=== PATIENT | male | born 1975 | race American Indian/Alaskan Native ===

== ENCOUNTER 2019-09-11 23:35 | Inpatient (IN) | payer OTHER ==
[2019-09-12] MEDS ORDERED: SULFAMETHOXAZOLE/TRIMETHOPRIM 800/160MG DS TAB PO ONE (01:48)
[2019-09-12] MEDS ORDERED: HYDROmorphone 1 MG/1 ML INJ IV ONE (01:48)
[2019-09-12] MEDS ORDERED: SODIUM CHLORIDE 0.9% 1000 ML 1,000 ML IV ONE ×2 (01:49→03:02)
[2019-09-12 02:12] LABS: Basophils % (Auto) 0.5 % (0.0-1.8); Eosinophils # (Auto) 0.1 K/mm3 (0.0-0.4); Eosinophils % (Auto) 1.1 % (0.0-4.3); Hematocrit 45.2 % (35.5-45.6); Hemoglobin 14.3 gm/dl (11.8-15.2); Lymphocytes # (Auto) 1.5 K/mm3 (1.2-5.4); Lymphocytes % (Auto) 15.2 % (13.4-35.0); Mean Corpuscular HGB Conc 32 % (32-34); Mean Corpuscular Volume 77 fl (84-94); Monocytes # (Auto) 0.5 K/mm3 (0.0-0.8); Monocytes % (Auto) 4.9 % (0.0-7.3); Platelet Count 276 K/mm3 (140-440); Red Blood Count 5.87 M/mm3 (3.65-5.03); Red Cell Distribution Width 14.5 % (13.2-15.2)
[2019-09-12 02:36] LABS: Alanine Aminotransferase 12 units/L (7-56); BUN/Creatinine Ratio 8; Blood Urea Nitrogen 9 mg/dL (9-20); Hemolysis Index 5
[2019-09-12] MEDS ORDERED: ACETAMINOPHEN 500 MG TAB PO ONE (03:03)
--- NOTE | 2019-09-12 04:03 | Cat Scan Report ---
CT PELVIS WITH CONTRAST INDICATION: Right scrotal abscess. TECHNIQUE: Axial, coronal and sagittal CT imaging was performed through the pelvis after injection of 100 cc Omn ipaque [address] scans at this location are performed using CT dose reduction for ALARA by means of automated exposure control. COMPARISON: None available. FINDINGS: Generalized perineal edema is seen without soft tissue gas or an organized fluid collection/abscess. An indeterminate soft tissue density linear structure is seen arising from the right/midline of the p osterior margin of the scrotum on images 114 through 122 of series 2. No significant abnormality of the urinary bladder or prostate gland. No significant abnormality of the included portions of the colon/small bowel or the appendix. No free air or free fluid. No significant adenopathy. No significant vascular abnormality. No significant osseous abnormality. IMPRESSION: 1. Perineal edema without CT evidence of an organized fluid collection/abscess along the pelvis. 2. Indeterminate structure of soft tissue density arising from the scrotum as above could represent a wound. Please correlate with the clinical findings. Signer Name: Luther Thayer MD Signed: 09/12/2019 3:59 AM Workstation Name: [id number]
--- NOTE | 2019-09-12 04:33 | Emergency Department Report ---
ED General Adult HPI - General Chief complaint: Skin/Abscess/Foreign Body Stated complaint: GROIN PAIN Source: patient Mode of arrival: Ambulatory Limitations: No Limitations - History of Present Illness Initial comments: Patient is a 44-year-old -[place]ien male with a history of of HIV who presents to the ED with complaint of acute onset persistent severe painful swollen erythematous maculopapular rash with thick purulent discharge on the scrotum that extends to the perineum for the last 1 week. Patient states that he has been taking [id number] pain medication with no relief. Patient states that in the last 2 days the pain and swelling have worsened and just prior to arrival in the ED, it started draining thick purulent discharge. Patient patient also complaints of diffuse body aches and chills with a low- grade fever intermittently for the last 5 days. Patient denies dizziness, syncope, nausea, vomiting, abdominal pain, dysuria, testicular pain, urinary frequency and urgency, hematuria, diarrhea, low back pain, chest pain or shortness of breath or change in vision and headache. MD Complaint: Scrotal and perineal abscess -: Sudden, week(s) (1) Location: genitals (scrotum and perineum) Radiation: other (perineum) Severity scale (0 -10): 10 Quality: aching, sharp Consistency: constant Improves with: none Worsens with: movement Associated Symptoms: denies other symptoms, fever/chills, headaches, loss of appetite, malaise, rash (Erythematous maculopapular perineal and scrotal rash with purulent discharge). denies: confusion, chest pain, cough, diaphoresis, nausea/vomiting, seizure, shortness of breath, syncope, weakness Treatments Prior to Arrival: NSAID - Related Data Allergies Allergy/AdvReac Type Severity Reaction Status Date / Time No Known Allergies Allergy Unverified 09/12/19 02:53 ED Review of Systems ROS: Stated complaint: GROIN PAIN Other details as noted in HPI Constitutional: denies: chills, fever Eyes: denies: eye pain, eye discharge, vision change ENT: denies: ear pain, throat pain Respiratory: denies: cough, shortness of breath, wheezing Cardiovascular: denies: chest pain, palpitations Endocrine: no symptoms reported Gastrointestinal: denies: abdominal pain, nausea, diarrhea Genitourinary: other (Severely painful swelling erythematous maculopapular rash on scrotum with purulent discharge). denies: urgency, dysuria Musculoskeletal: denies: back pain, joint swelling, arthralgia Skin: rash, change in color, other (Painful, swollen, erythematous maculopapular rash on the scrotum with purulent discharge). denies: lesions Neurological: denies: headache, weakness, paresthesias Psychiatric: denies: anxiety, depression Hematological/Lymphatic: denies: easy bleeding, easy bruising ED Past Medical Hx - Past Medical History Previous Medical History?: Yes Hx HIV: Yes (undectable since 2011) - Surgical History Past Surgical History?: Yes Additional Surgical History: adenoids - Social History Smoking Status: Never Smoker Substance Use Type: Alcohol ED Physical Exam - General Limitations: No Limitations General appearance: alert, in no apparent distress - Head Head exam: Present: atraumatic, normocephalic, normal inspection - Eye Eye exam: Present: normal appearance, PERRL Pupils: Present: normal accommodation - ENT ENT exam: Present: normal exam, normal orophraynx, mucous membranes moist, TM's normal bilaterally, normal external ear exam - Neck Neck exam: Present: normal inspection, full ROM - Respiratory Respiratory exam: Present: normal lung sounds bilaterally. Absent: respiratory distress, wheezes, rales, rhonchi, chest wall tenderness, accessory muscle use, decreased breath sounds - Cardiovascular Cardiovascular Exam: Present: normal rhythm, tachycardia, normal heart sounds. Absent: systolic murmur, diastolic murmur, rubs, gallop - GI/Abdominal GI/Abdominal exam: Present: soft, normal bowel sounds. Absent: tenderness, hyperactive bowel sounds, hypoactive bowel sounds - exam: Present: scrotal swelling (Swollen, severely tender scrotum due to e rythematous maculopapular rash with thick purulent discharge) External exam: Present: swelling (Severely tender, swollen, erythematous maculopapular rash on scrotum extending to the perineum with thick purulent discharge) - Extremities Exam Extremities exam: Present: normal inspection, full ROM, normal capillary refill. Absent: tenderness, pedal edema, joint swelling - Back Exam Back exam: Present: normal inspection, full ROM. Absent: tenderness, muscle spasm, paraspinal tenderness - Neurological Exam Neurological exam: Present: alert, oriented X3, CN II-XII intact, normal gait, reflexes normal - Psychiatric Psychiatric exam: Present: normal affect, normal mood - Skin Skin exam: Present: warm, dry, intact, rash (Swollen, severely tender erythematous maculopapular scrotal rash that extends to the perineum with thick purulent discharge), erythema ED Course Vital Signs 09/11/19 09/12/19 23:50 05:00 Temperature 99.9 F H 98.9 F Pulse Rate 102 H 66 Respiratory 20 18 Rate Blood Pressure 140/103 Blood Pressure 106/75 [Left] O2 Sat by Pulse 99 100 Oximetry ED Medical Decision Making - Lab Data Result diagrams: 09/12/19 01:52 09/12/19 01:52 - Radiology Data Radiology results: report reviewed, [place] [address] Cat Scan Report Signed Patient: JANUSZ PEOPLES MR#: [id number] : 1975 Acct:[id number] Age/Sex: 44 / M ADM Date: 09/11/19 Loc: ED Attending Dr: Ordering Physician: KASIA GUEVARA Date of Service: 09/12/19 Procedure(s): CT pelvis w con Accession Number(s): [id number] cc: KASIA GUEVARA CT PELVIS WITH CONTRAST INDICATION: Right scrotal abscess. TECHNIQUE: Axial, coronal and sagittal CT imaging was performed through the pelvis after injection of 100 cc Omnipaque [address] scans at this location are performed using CT dose reduction for ALARA by means of automated exposure control. COMPARISON: None available. FINDINGS: Generalized perineal edema is seen without soft tissue gas or an organized fluid collection/abscess. An indeterminate soft tissue density linear structure is seen arising from the right/midline of the posterior margin of the scrotum on images 114 through 122 of series 2. No significant abnormality of the urinary bladder or prostate gland. No significant abnormality of the included portions of the colon/small bowel or the appendix. No free air or free fluid. No significant adenopathy. No significant vascular abnormality. No significant osseous abnormality. IMPRESSION: 1. Perineal edema without CT evidence of an organized fluid collection/abscess along the pelvis. 2. Indeterminate structure of soft tissue density arising from the scrotum as above could represent a wound. Please correlate with the clinical findings. Signer Name: Luther Thayer MD Signed: 09/12/2019 3:59 AM Workstation Name: [id number] Transcribed By: MN Dictated By: Luther Thayer MD Electronically Authenticated By: Luther Thayer MD Signed Date/Time: 09/12/19358 DD/ 3 TD/TT: - Medical Decision Making This is a 44-year-old -[place]ien male with a history of of HIV who presents to the ED with complaint of acute onset persistent severe painful swollen erythematous maculopapular rash with thick purulent discharge on the scrotum that extends to the perineum for the last 1 week. Patient states that he has been taking [id number] pain medication with no relief. Patient states that in the last 2 days the pain and swelling have worsened and just prior to arrival in the ED, it started draining thick purulent discharge. Patient patient also complaints of diffuse body aches and chills with a low-gra de fever intermittently for the last 5 days. In the ED, patient is alert and oriented x3 and is not in distress but appears to be in great pain. Patient is slightly tachycardic and with fever of 99.9 F. Patient was treated for pain in the ED and also started on 2 L normal saline IV bolus, also started on antibiotics IV and treated for fever. Lab test results were reviewed and showed lactate of 2.2 and hyperglycemia 133 mg/dL. Pelvis CT scan with contrast shows a generalized perineal edema without soft tissue gas or an organized fluid collection/abscess. It also shows an indeterminate soft tissue density linear structure is seen arising from the right/midline of the posterior margin of the scrotum. These findings were discussed with the ED attending physician who advised that the patient be admitted to the hospital for further IV antibiotics administration and for further general surgical consult with general surgeon on- call Dr. Sheppard. I therefore paged and discussed the patient's case with the hospitalist physician on-call Dr. Almeida who admitted the patient to the hospital. - Differential Diagnosis Scrotal abscess; perineum cellulitis and abscess; folliculitis Critical care attestation.: If time is entered above; I have spent that time in minutes in the direct care of this critically ill patient, excluding procedure time. ED Disposition Clinical Impression: Abscess of scrotal wall, Abscess or cellulitis of perineum Disposition: 09 OP ADMIT IP TO THIS HOSP Is pt being admited?: Yes Does the pt Need Aspirin: Yes Condition: Stable Referrals: PRIMARY CARE, [Primary Care Provider] - 3-5 Days Time of Disposition: 04:39 Print Language: YORUBA
[2019-09-12] MEDS ORDERED: ASPIRIN 81 MG TAB CHEW PO ONE (05:37)
[2019-09-12] MEDS ORDERED: SODIUM CHLORIDE 0.9% 1000 ML IV SOLN IV ONE (08:01)
[2019-09-12] MEDS ORDERED: ALBUTEROL 2.5 MG/3 ML NEBU IH PRN (08:01)
[2019-09-12] MEDS ORDERED: MORPHINE 2 MG/1 ML INJ IV PRN (08:01)
[2019-09-12] MEDS ORDERED: ACETAMINOPHEN 325 MG TAB PO PRN (08:01)
[2019-09-12] MEDS ORDERED: oxyCODONE /ACETAMINOPHEN 5-325MG TAB PO PRN (08:01)
--- NOTE | 2019-09-12 08:07 | History and Physical Report ---
History of Present Illness Date of examination: 09/12/19 Date of admission: 09/12/19 06:43 Chief complaint: Scrotal pain History of present illness: Patient is a 44-year-old male with history consistent of HIV not on any retroviral and prior history of scrotal abscess who presents to the ED with complaint of perirenal pain 7/10 in intensity ongoing for about a week with swelling and discharge is noted in the area. The patient reports that in prior years he had incision and drainage in the same area and required home health about 2 weeks. He otherwise has not had the need to go to the hospital until this happened bring him to the ED. In the ED he was noted to have a severely painful swollen erythematous maculopapular rash with thick purulent discharge in scrotum area he reports diffuse body aches and chills with low-grade fever for the past 5 days. But denies any nausea vomiting or diarrhea. Past History Past Medical History: HIV/AIDS, other (HIV) Past Surgical History: Other (PERIRENAL ABSCESS I/D) Social history: no significant social history Family history: no significant family history Medications and Allergies Allergies Allergy/AdvReac Type Severity Reaction Status Date / Time No Known Allergies Allergy Unverified 09/12/19 02:53 Home Medications Medication Instructions Recorded Confirmed Last Taken Type No Known Home Medications [No 09/12/19 09/12/19 Unknown History Reported Home Medications] Active Meds: Active Medications Acetaminophen (Tylenol) 650 mg PO Q4H PRN PRN Reason: Pain MILD(1-3)/Fever >100.5/CUELLO Albuterol (Proventil) 2.5 mg IH Q4HRT PRN PRN Reason: Shortness Of Breath Heparin Sodium (Porcine) (Heparin) 5,000 unit SUB-Q Q12HR KILEY Sodium Chloride (Nacl 0.9% 1000 Ml) 1,000 mls @ 125 mls/hr IV DIRECT KILEY Cefepime HCl (Cefepime/Ns 2 Gm/100 Ml) 2 gm in 100 mls @ 200 mls/hr IV Q8HR KILEY; Protocol Metronidazole (Flagyl 500 Mg/100 Ml) 500 mg in 100 mls @ 100 mls/hr IV Q8HR KILEY; Protocol Morphine Sulfate (Morphine) 2 mg IV Q4H PRN PRN Reason: Pain , Severe (7-10) Ondansetron HCl (Zofran) 4 mg IV Q8H PRN PRN Reason: Nausea And Vomiting Oxycodone/Acetaminophen (Percocet 5/325) 1 tab PO Q6H PRN PRN Reason: Pain, Moderate (4-6) Senna (Senokot) 8.6 mg PO Q12HR KILEY Sodium Chloride (Sodium Chloride Flush Syringe 10 Ml) 10 ml IV BID KILEY Sodium Chloride (Sodium Chloride Flush Syringe 10 Ml) 10 ml IV PRN PRN PRN Reason: LINE FLUSH Sodium Chloride (Nacl 0.9% 1000 Ml) 2,380 ml 30 ml/kg (2380 ml) IV ONCE ONE Stop: 09/12/19 08:02 Review of Systems All systems: negative Constitutional: fever, chills, fatigue, no weight loss, no weight gain, no sweats, no night sweats, no anorexia, no weakness, no malaise, no lethargy, no chronic headaches, no poor appetite, no daytime sleepiness, no chronic pain Cardiovascular: no orthopnea, no palpitations, no rapid/irregular heart beat, no edema, no syncope, no lightheadedness, no shortness of breath, no claudication, no phlebitis, no high blood pressure, no leg edema Respiratory: no cough, no hemoptysis, no shortness of breath, no dyspnea on exertion Gastrointestinal: no nausea, no vomiting, no diarrhea, no constipation, no change in bowel habits, no melena, no loss of appetite, no early satiety, no heartburn, no dyspepsia/bloating, no early satiety Genitourinary Male: discharge, genital pain Neurological: no paralysis, no numbness Psychiatric: no memory loss, no change in sleep habits, no insomnia, no change in appetite, no change in libido Endocrine: no heat intolerance, no excessive thirst, no nocturia, no thyroid mass Hematologic/Lymphatic: no easy bruising Allergic/Immunologic: no urticaria, no persistent infections Exam - Physical Exam Narrative exam: VITAL SIGNS: Reviewed. GENERAL: The patient appears normally developed, Vital signs as documented. HEAD: No signs of head trauma. EYES: Pupils are equal. Extraocular motions intact. EARS: Hearing grossly intact. MOUTH: Oropharynx is normal. NECK: No adenopathy, no JVD. CHEST: Chest with clear breath sounds bilaterally. No wheezes, rales, or rhonchi. CARDIAC: Regular rate and rhythm. S1 and S2, without murmurs, gallops, or rubs. VASCULAR: No Edema. Peripheral pulses normal and equal in all extremities. ABDOMEN/: Scrotal erythema with maculopapular rash, some drainage expressed. Tender to touch soft, non tender and non distended. No rebound or guarding, and no masses palpated. Bowel Sounds normal. MUSCULOSKELETAL: Good range of motion of all major joints. Extremities without clubbing, cyanosis or edema. NEUROLOGIC EXAM: Alert and oriented x 3 No focal sensory or strength deficits. Speech normal. Follows commands. PSYCHIATRIC: Mood normal. SKIN: detial exam as documented in skin assessment - Constitutional Vitals: Temp Pulse Resp BP Pulse Ox 98.9 F 66 18 106/75 100 09/12/19 05:00 09/12/19 05:00 09/12/19 05:00 09/12/19 05:00 09/12/19 05:00 Results - Labs CBC & Chem 7: 09/12/19 01:52 09/12/19 01:52 Labs: Laboratory Last Values WBC 9.6 K/mm3 (4.5-11.0) 09/12/19 01:52 RBC 5.87 M/mm3 (3.65-5.03) H 09/12/19 01:52 Hgb 14.3 gm/dl (11.8-15.2) 09/12/19 01:52 Hct 45.2 % (35.5-45.6) 09/12/19 01:52 MCV 77 fl (84-94) L 09/12/19 01:52 MCH 24 pg (28-32) L 09/12/19 01:52 MCHC 32 % (32-34) 09/12/19 01:52 RDW 14.5 % (13.2-15.2) 09/12/19 01:52 Plt Count 276 K/mm3 (140-440) 09/12/19 01:52 Lymph % (Auto) 15.2 % (13.4-35.0) 09/12/19 01:52 Mcmullen % (Auto) 4.9 % (0.0-7.3) 09/12/19 01:52 Eos % (Auto) 1.1 % (0.0-4.3) 09/12/19 01:52 Baso % (Auto) 0.5 % (0.0-1.8) 09/12/19 01:52 Lymph # 1.5 K/mm3 (1.2-5.4) 09/12/19 01:52 Mcmullen # 0.5 K/mm3 (0.0-0.8) 09/12/19 01:52 Eos # 0.1 K/mm3 (0.0-0.4) 09/12/19 01:52 Baso # 0.0 K/mm3 (0.0-0.1) 09/12/19 01:52 Seg Neutrophils % 78.3 % (40.0-70.0) H 09/12/19 01:52 Seg Neutrophils # 7.5 K/mm3 (1.8-7.7) 09/12/19 01:52 Sodium 141 mmol/L (137-145) 09/12/19 01:52 Potassium 4.3 mmol/L (3.6-5.0) 09/12/19 01:52 Chloride 103.6 mmol/L (98-107) 09/12/19 01:52 Carbon Dioxide 24 mmol/L (22-30) 09/12/19 01:52 Anion Gap 18 mmol/L 09/12/19 01:52 BUN 9 mg/dL (9-20) 09/12/19 01:52 Creatinine 1.1 mg/dL (0.8-1.5) 09/12/19 01:52 Estimated GFR > 60 ml/min 09/12/19 01:52 BUN/Creatinine Ratio 8 % 09/12/19 01:52 Glucose 133 mg/dL (75-100) H 09/12/19 01:52 Lactic Acid 1.80 mmol/L (0.7-2.0) 09/12/19 02:35 Calcium 9.0 mg/dL (8.4-10.2) 09/12/19 01:52 Total Bilirubin < 0.20 mg/dL (0.1-1.2) 09/12/19 01:52 AST 14 units/L (5-40) 09/12/19 01:52 ALT 12 units/L (7-56) 09/12/19 01:52 Alkaline Phosphatase 85 units/L (35-129) 09/12/19 01:52 Total Protein 7.0 g/dL (6.3-8.2) 09/12/19 01:52 Albumin 4.0 g/dL (3.9-5) 09/12/19 01:52 Albumin/Globulin Ratio 1.3 % 09/12/19 01:52 Assessment and Plan Assessment and plan: Patient is a 44-year-old male with history consistent of HIV not on any retroviral and prior history of scrotal abscess who presents to the ED with complaint of perirenal pain 7/10 in intensity ongoing for about a week with swelling and discharge is noted in the area. The patient reports that in prior years he had incision and drainage in the same area and required home health about 2 weeks. He otherwise has not had the need to go to the hospital until this happened bring him to the ED. In the ED he was noted to have a severely painful swollen erythematous maculopapular rash with thick purulent discharge in scrotum area he reports diffuse body aches and chills with low-grade fever for the past 5 days. But denies any nausea vomiting or diarrhea. Pelvic CT: IMPRESSION: 1. Perineal edema without CT evidence of an organized fluid collection/abscess along the pelvis. 2. Indeterminate structure of soft tissue density arising from the scrotum as above could represent a wound. Please correlate with the clinical findings. Scrotal abscess SIRS Without organ dysfunction HIV PLAN Admit to the medical surgical unit Continue empiric antibiotic with cefepime and Flagyl ID consultation Surgical consultation Pain control Rule out diabetes monitor blood sugar. Discussed with patient need to have a follow-up for management of his HIV Follow additional recommendation by the consultants. Plan discussed with the patient DVT and GI prophylaxis Advance Directives: Yes Plan of care discussed with patient/family: Yes
[2019-09-12] MEDS ORDERED: ONDANSETRON 4 MG/2 ML INJ IV PRN (09:00)
[2019-09-12] MEDS: HEPARIN 5,000 UNIT/1 ML VIAL SUB-Q SCH ×2 (09:35→22:06)
[2019-09-12] MEDS: SENNOSIDES 8.6 MG TAB PO SCH ×2 (09:36→22:05)
[2019-09-12] MEDS: metroNIDAZOLE/NS 500 MG/100 ML 500 MG/100 ML BAG IV SCH ×3 (09:36→22:06)
[2019-09-12] MEDS: CEFEPIME/NS 2 GM/100 ML 2 GM/100 ML BAG IV SCH ×3 (09:51→22:06)
[2019-09-12 11:55] LABS: Bilirubin,Urine NEG (Negative); Blood,Urine NEG (Negative); Color,Urine Straw (Yellow); Protein,Urine <15 mg/dL mg/dL (Negative); Urobilinogen,Urine < 2.0 mg/dL (<2.0)
[2019-09-12] MEDS: SODIUM CHLORIDE 0.9% 1000 ML 1,000 ML IV SCH (13:11)
--- NOTE | 2019-09-12 13:21 | Consultation ---
History of Present Illness Consult date: 09/12/19 Chief complaint: perirectal pain - History of present illness History of present illness: 44 yo M with hx of HIV who presented to ER with c/o pain in the perineal region. This has been ongoing for 1 week and is associated with swelling of the area. No inciting factor noted. NO trauma to the area. States he has had an abscess in t he same area before and underwent incision and drainage in the past. He is aware of having to pack the area and had home health care for 2 weeks. He denies f/c. States that in the ER the skin over the swollen area broke open and started to drain blood. He denies dysuria. No n/v, abd pain. Patient is a 44-year-old -Portuguese male with a history of of HIV who presents to the ED with complaint of acute onset persistent severe painful swollen erythematous maculopapular rash with thick purulent discharge on the scrotum that extends to the perineum for the last 1 week. Patient states that he has been taking [id number] pain medication with no relief. Patient states that in the last 2 days the pain and swelling have worsened and just prior to arrival in the ED, it started draining thick purulent discharge. Patient patient also complaints of diffuse body aches and chills with a low- grade fever intermittently for the last 5 days. Patient denies dizziness, syncope, nausea, vomiting, abdominal pain, dysuria, testicular pain, urinary frequency and urgency, hematuria, diarrhea, low back pain, chest pain or shortness of breath or change in vision and headache. Past History Past Medical History: other (HIV) Past Surgical History: Other (incision and drainage of perineal abscess) Social history: no significant social history Family history: no significant family history Medications and Allergies Allergies Allergy/AdvReac Type Severity Reaction Status Date / Time No Known Allergies Allergy Unverified 09/12/19 02:53 Home Medications Medication Instructions Recorded Confirmed Last Taken Type No Known Home Medications [No 09/12/19 09/12/19 Unknown History Reported Home Medications] Active Meds: Active Medications Acetaminophen (Tylenol) 650 mg PO Q4H PRN PRN Reason: Pain MILD(1-3)/Fever >100.5/CUELLO Albuterol (Proventil) 2.5 mg IH Q4HRT PRN PRN Reason: Shortness Of Breath Heparin Sodium (Porcine) (Heparin) 5,000 unit SUB-Q Q12HR [facility] Last Admin: 09/12/19 09:35 Dose: 5,000 unit Documented by: Sodium Chloride (Nacl 0.9% 1000 Ml) 1,000 mls @ 125 mls/hr IV DIRECT [facility] Last Admin: 09/12/19 13:11 Dose: 125 mls/hr Documented by: Cefepime HCl (Cefepime/Ns 2 Gm/100 Ml) 2 gm in 100 mls @ 200 mls/hr IV Q8HR [facility]; Protocol Last Admin: 09/12/19 13:06 Dose: 200 mls/hr Documented by: Metronidazole (Flagyl 500 Mg/100 Ml) 500 mg in 100 mls @ 100 mls/hr IV Q8HR [facility]; Protocol Last Admin: 09/12/19 13:06 Dose: 100 mls/hr Documented by: Morphine Sulfate (Morphine) 2 mg IV Q4H PRN PRN Reason: Pain , Severe (7-10) Last Admin: 09/12/19 12:16 Dose: 2 mg Documented by: Ondansetron HCl (Zofran) 4 mg IV Q8H PRN PRN Reason: Nausea And Vomiting Oxycodone/Acetaminophen (Percocet 5/325) 1 tab PO Q6H PRN PRN Reason: Pain, Moderate (4-6) Senna (Senokot) 8.6 mg PO Q12HR [facility] Last Admin: 09/12/19 09:36 Dose: 8.6 mg Documented by: Sodium Chloride (Sodium Chloride Flush Syringe 10 Ml) 10 ml IV BID [facility] Last Admin: 09/12/19 09:37 Dose: 10 ml Documented by: Sodium Chloride (Sodium Chloride Flush Syringe 10 Ml) 10 ml IV PRN PRN PRN Reason: LINE FLUSH Stop: 09/22/19 08:00 Review of Systems All systems: negative (10 pt ROS performed and negative except for that listed in HPI) Exam Vital Signs Temp Pulse Resp BP Pulse Ox 99.9 F H 102 H 20 140/103 99 09/11/19 23:50 09/11/19 23:50 09/11/19 23:50 09/11/19 23:50 09/11/19 23:50 Narrative exam: Gen; AAOx3. NAD ENT: no scleral icterus or conjunctival pallor CV: s1, S2+ Resp: even and unlabored Abd: soft Ext; no c/c/e : Small opening in skin of perineum deep to which there is tenderness, erythema, induration, and fluctuance. Area probed with cotton tip applicator and hematoma seen but could not be expressed due to pain. Results - Labs 09/12/19 01:52 09/12/19 01:52 Abnormal lab results 09/12/19 09/12/19 09/12/19 Range/Units 01:52 01:52 01:52 RBC 5.87 H (3.65-5.03) M/mm3 MCV 77 L (84-94) fl MCH 24 L (28-32) pg Seg Neutrophils % 78.3 H (40.0-70.0) % Glucose 133 H (75-100) mg/dL Lactic Acid 2.20 H* (0.7-2.0) mmol/L Diabetes panel 09/12/19 Range/Units 01:52 Sodium 141 (137-145) mmol/L Potassium 4.3 (3.6-5.0) mmol/L Chloride 103.6 (98-107) mmol/L Carbon Dioxide 24 (22-30) mmol/L BUN 9 (9-20) mg/dL Creatinine 1.1 (0.8-1.5) mg/dL Glucose 133 H (75-100) mg/dL Calcium 9.0 (8.4-10.2) mg/dL AST 14 (5-40) units/L ALT 12 (7-56) units/L Alkaline Phosphatase 85 (35-129) units/L Total Protein 7.0 (6.3-8.2) g/dL Albumin 4.0 (3.9-5) g/dL Calcium panel 09/12/19 Range/Units 01:52 Calcium 9.0 (8.4-10.2) mg/dL Albumin 4.0 (3.9-5) g/dL Pituitary panel 09/12/19 Range/Units 01:52 Sodium 141 (137-145) mmol/L Potassium 4.3 (3.6-5.0) mmol/L Chloride 103.6 (98-107) mmol/L Carbon Dioxide 24 (22-30) mmol/L BUN 9 (9-20) mg/dL Creatinine 1.1 (0.8-1.5) mg/dL Glucose 133 H (75-100) mg/dL Calcium 9.0 (8.4-10.2) mg/dL Adrenal panel 09/12/19 Range/Units 01:52 Sodium 141 (137-145) mmol/L Potassium 4.3 (3.6-5.0) mmol/L Chloride 103.6 (98-107) mmol/L Carbon Dioxide 24 (22-30) mmol/L BUN 9 (9-20) mg/dL Creatinine 1.1 (0.8-1.5) mg/dL Glucose 133 H (75-100) mg/dL Calcium 9.0 (8.4-10.2) mg/dL Total Bilirubin < 0.20 (0.1-1.2) mg/dL AST 14 (5-40) units/L ALT 12 (7-56) units/L Alkaline Phosphatase 85 (35-129) units/L Total Protein 7.0 (6.3-8.2) g/dL Albumin 4.0 (3.9-5) g/dL - Imaging CT scan - pelvis: report reviewed, image reviewed Assessment and Plan 44 yo M with abscess of perineum, likely infected hematoma Plan: 1. continue abx per 1' service 2. prn pain control 3. reg diet, NPO p MN tonight 4. Recommend incision and drainage of perineum abscess in OR as patient cannot tolerate this at bedside. I discussed this with patient and questions answered. He is agreeable to proceed. There is no time available in the OR today and so patient will be added on for tomorrow am. 5. case management consult, home health care consult, jamel care application as he is unfunded Thank you, please call with questions.
--- NOTE | 2019-09-12 13:55 | Consultation ---
History of Present Illness - Reason for Consult Consult date: 09/12/19 - History of Present Illness 44-year-old male past medical history HIV admitted to the hospital complaining of pain in the perineal region. He notes the pain began approximately 1 week prior to admission and was associated with swelling. He does report that he has a history of a scrotal abscess in the past, and for that he underwent an I&D. Otherwise he denies any fevers, sweats, chills. Prior to coming the hospital the area started spontaneously draining purulent discharge. Regarding his HIV he is currently on Odefsey but ran out a few days prior due to insurance difficulties. Notes he has been undetectable for 8 years. Afebrile since admission with a normal white count. Currently think cefepime and Flagyl. No cultures available for review at this time. Imaging personally reviewed: Pelvis CT: Soft tissue density arising from the wound and scrotal area. Review of Systems: Bold if positive, otherwise negative General: fevers, chills, rigors HEENT: visual disturbance, diplopia, eye pain Respiratory: cough, sputum, hemoptysis, shortness of breath Cardiovascular: chest pain, syncope Gastrointestinal: nausea, vomiting, diarrhea, abdominal pain Genitourinary: dysuria, hematuria, flank pain, scrotal pain Musculoskeletal: neck pain, back pain, joint pain, edema Neurologic: headaches, seizures Hematologic: easy bruising or bleeding Endocrine: night sweats, acute weight loss Skin: rash, jaundice, redness Psychiatric: suicidal, homicidal ideation Past History Past Medical History: other (HIV) Past Surgical History: Other (incision and drainage of perineal abscess) Social history: no significant social history Family history: no significant family history Medications and Allergies Allergies Allergy/AdvReac Type Severity Reaction Status Date / Time No Known Allergies Allergy Unverified 09/12/19 02:53 Home Medications Medication Instructions Recorded Confirmed Last Taken Type No Known Home Medications [No 09/12/19 09/12/19 Unknown History Reported Home Medications] Active Meds: Active Medications Acetaminophen (Tylenol) 650 mg PO Q4H PRN PRN Reason: Pain MILD(1-3)/Fever >100.5/CUELLO Albuterol (Proventil) 2.5 mg IH Q4HRT PRN PRN Reason: Shortness Of Breath Heparin Sodium (Porcine) (Heparin) 5,000 unit SUB-Q Q12HR [facility] Last Admin: 09/12/19 09:35 Dose: 5,000 unit Documented by: Sodium Chloride (Nacl 0.9% 1000 Ml) 1,000 mls @ 125 mls/hr IV DIRECT [facility] Last Admin: 09/12/19 13:11 Dose: 125 mls/hr Documented by: Cefepime HCl (Cefepime/Ns 2 Gm/100 Ml) 2 gm in 100 mls @ 200 mls/hr IV Q8HR [facility]; Protocol Last Admin: 09/12/19 13:06 Dose: 200 mls/hr Documented by: Metronidazole (Flagyl 500 Mg/100 Ml) 500 mg in 100 mls @ 100 mls/hr IV Q8HR [facility]; Protocol Last Admin: 09/12/19 13:06 Dose: 100 mls/hr Documented by: Morphine Sulfate (Morphine) 2 mg IV Q4H PRN PRN Reason: Pain , Severe (7-10) Last Admin: 09/12/19 12:16 Dose: 2 mg Documented by: Ondansetron HCl (Zofran) 4 mg IV Q8H PRN PRN Reason: Nausea And Vomiting Oxycodone/Acetaminophen (Percocet 5/325) 1 tab PO Q6H PRN PRN Reason: Pain, Moderate (4-6) Senna (Senokot) 8.6 mg PO Q12HR [facility] Last Admin: 09/12/19 09:36 Dose: 8.6 mg Documented by: Sodium Chloride (Sodium Chloride Flush Syringe 10 Ml) 10 ml IV BID [facility] Last Admin: 09/12/19 09:37 Dose: 10 ml Documented by: Sodium Chloride (Sodium Chloride Flush Syringe 10 Ml) 10 ml IV PRN PRN PRN Reason: LINE FLUSH Stop: 09/22/19 08:00 Physical Examination - Physical Exam Narrative exam: Physical Exam: Constitutional: Alert, cooperative. No acute distress Head, Ears, Nose: Normocephalic, atraumatic. External ears, nose normal Eyes: Conjunctivae/corneas clear. No icterus. No ptosis. Neck: Supple, no meningeal signs Oral: dentition fair, no thrush Cardiovascular: S1, S2 normal. Respiratory: Good air entry, clear to auscultation bilaterally GI: Soft, non-tender; bowel sounds normal. No peritoneal signs. Scrotum with bandage, drainage present on bandage. Musculoskeletal: No pedal edema, no cyanosis. Skin: No rash or abscess Hem/Lymphatic: No palpable cervical or supraclavicular nodes. No lymphangitis Psych: Mood ok. Affect normal Neurological: Awake, alert, oriented. No gross abnormality - Constitutional Vitals: Vital Signs Temp Pulse Resp BP Pulse Ox 98.9 F 66 18 106/75 95 09/12/19 05:00 09/12/19 05:00 09/12/19 05:00 09/12/19 05:00 09/12/19 08:30 Temperature -Last 24 Hours Temperature 98.9 F Temperature 99.9 F Results - Labs CBC & Chem 7: 09/12/19 01:52 09/12/19 01:52 Labs: Abnormal lab results 09/12/19 09/12/19 09/12/19 Range/Units 01:52 01:52 01:52 RBC 5.87 H (3.65-5.03) M/mm3 MCV 77 L (84-94) fl MCH 24 L (28-32) pg Seg Neutrophils % 78.3 H (40.0-70.0) % Glucose 133 H (75-100) mg/dL Lactic Acid 2.20 H* (0.7-2.0) mmol/L Assessment and Plan Cultures: None A/P: 44-year-old man past medical history HIV admitted with scrotal abscess. #Scrotal abscess: For I&D tomorrow, request that cultures be taken during the surgery. Continue empiric cefepime and Flagyl for now, will add vancomycin for MRSA coverage. Final antibiotic course to be decided by culture data. Given surrounding cellulitis, recommend complete course of antibiotics after drainage of abscess. #HIV: On Odefsey but ran out 3 days ago. As he is unfunded, recommend following up with the [facility] across the street in order to enroll in the [facility] program for medications and lab follow-up. Right now, will order CD4 and viral load to assess current status. Recs: -Obtain cultures from abscess I&D tomorrow -Continue empiric cefepime and Flagyl -Started empiric vancomycin dosed per pharmacy, goal trough 10-20 -Ordered CD4 and viral load -Needs to follow-up as an outpatient with [facility] to establish care for HIV if he cannot get his insurance sorted. -Will start Atripla, which subsitutes the rilpivirine of [place]ector with efavirenz, another NNRTI Thank you for the consult, we will continue to follow. Yanci Huddleston MD [facility] ([facility]) M: [phone] O: [phone] F: [phone]
[2019-09-12] MEDS ORDERED: VANCOMYCIN PHARMACY TO DOSE IV SCH (15:00)
[2019-09-12] MEDS: VANCOMYCIN 1,500 MG in SODIUM CHLORIDE 0.9% 500 ML 500 ML IV SCH (15:45)
--- NOTE | 2019-09-12 16:27 | Anesthesia Consultation ---
<CHIDI VAUGHAN - Last Filed: 09/12/19 16:25> Anesthesia Consult and Med Hx Date of service: 09/12/19 - Airway Anesthetic Teeth Evaluation: Good ROM Head & Neck: Adequate Mental/Hyoid Distance: Adequate Mallampati Class: Class II Intubation Access Assessment: Probably Good - Pre-Operative Health Status ASA Pre-Surgery Classification: ASA3 Proposed Anesthetic Plan: General - Pulmonary Hx Smoking: No Hx Asthma: Yes Hx Respiratory Symptoms: No SOB: No COPD: No Home Oxygen Therapy: No Hx Pneumonia: No Hx Sleep Apnea: Yes - Cardiovascular System Hx Hypertension: No Hx Coronary Artery Disease: No Hx Heart Attack/AMI: No Hx Angina: No Hx Percutaneous Transluminal Coronary Angioplasty (PTCA): No Hx Cardia Arrhythmia: No Hx Pacemaker: No Hx Internal Defibrillator: No Hx Valvular Heart Disease: No Hx Heart Murmur: No Hx Peripheral Vascular Disease: No - Central Nervous System Hx Neuromuscular Disorder: No Hx Seizures: No CVA: No Hx Back Pain: No Hx Psychiatric Problems: No - Gastrointestinal Hx Ulcer: No Hx Gastroesophageal Reflux Disease: No - Endocrine Hx Renal Disease: No (kidney stones in the past) Hx End Stage Renal Disease: No Hx Cirrhosis: No Hx Liver Disease: No Hx Insulin Dependent Diabetes: No Hx Non-Insulin Dependent Diabetes: No Hx Thyroid Disease: No Hx Hypothyroidism: No Hx Hyperthyroidism: No - Hematic Hx Anemia: No Hx Sickle Cell Disease: No - Other Systems Hx Alcohol Use: No Hx Substance Use: No Hx Cancer: No Hx Obesity: No <LENIN AU - Last Filed: 09/13/19 10:03> Anesthesia Consult and Med Hx - Pre-Operative Health Status ASA Pre-Surgery Classification: ASA3 Proposed Anesthetic Plan: General - Pulmonary Hx Asthma: Yes (no inhaler use in many years) Hx Sleep Apnea: Yes - Cardiovascular System Hx Hypertension: No Hx Heart Attack/AMI: No - Central Nervous System CVA: No - Endocrine Hx Renal Disease: No Hx Insulin Dependent Diabetes: No - Other Systems Hx Obesity: No - Additional Comments Anesthesia Medical History Comments: HIV+
[2019-09-13] MEDS: VANCOMYCIN 1,500 MG in SODIUM CHLORIDE 0.9% 500 ML 500 ML IV SCH ×2 (03:59→15:51)
[2019-09-13] MEDS: CEFEPIME/NS 2 GM/100 ML 2 GM/100 ML BAG IV SCH ×2 (05:30→18:35)
[2019-09-13] MEDS: metroNIDAZOLE/NS 500 MG/100 ML 500 MG/100 ML BAG IV SCH ×2 (05:30→18:35)
[2019-09-13] MEDS ORDERED: EMTRICITABINE 200 MG CAP PO SCH (06:00)
[2019-09-13] MEDS ORDERED: EFAVIRENZ 200 MG CAP PO SCH (06:00)
[2019-09-13] MEDS ORDERED: EFAVIRENZ 600 MG, TENOFOVIR 300 MG, EMTRICITABINE 200 MG PO SCH (06:00)
[2019-09-13] MEDS ORDERED: TENOFOVIR 300 MG TAB PO SCH (06:00)
[2019-09-13] MEDS ORDERED: MEPERIDINE 25 MG/1 ML INJ IV PRN (08:50)
[2019-09-13] MEDS ORDERED: fentaNYL 100 MCG/2 ML INJ IV PRN (08:50)
[2019-09-13] MEDS ORDERED: NALOXONE 0.4 MG/1 ML INJ IV PRN (08:50)
[2019-09-13] MEDS ORDERED: HYDROmorphone 1 MG/1 ML INJ IV PRN (08:50)
[2019-09-13] MEDS ORDERED: KETOROLAC 30 MG/1 ML INJ IV PRN (08:50)
[2019-09-13] MEDS ORDERED: ONDANSETRON 4 MG/2 ML INJ IV PRN (08:50)
--- NOTE | 2019-09-13 08:52 | Progress Note ---
Assessment and Plan Assessment and plan: Patient is a 44-year-old male with history consistent of HIV not on any retroviral and prior history of scrotal abscess who presents to the ED with complaint of perirenal pain 7/10 in intensity ongoing for about a week with swelling and discharge is noted in the area. The patient reports that in prior years he had incision and drainage in the same area and required home health about 2 weeks. He otherwise has not had the need to go to the hospital until this happened bring him to the ED. In the ED he was noted to have a severely painful swollen erythematous maculopapular rash with thick purulent discharge in scrotum area he reports diffuse body aches and chills with low-grade fever for the past 5 days. But denies any nausea vomiting or diarrhea. Pelvic CT: IMPRESSION: 1. Perineal edema without CT evidence of an organized fluid collection/abscess along the pelvis. 2. Indeterminate structure of soft tissue density arising from the scrotum as above could represent a wound. Please correlate with the clinical findings. Scrotal abscess SIRS Without organ dysfunction HIV PLAN Plan for I/D today Continue empiric antibiotic with Cefepime and Flagyl ID consultation INPUT NOTED -Continue empiric cefepime and Flagyl -Started empiric vancomycin dosed per pharmacy, goal trough 10-20 -Ordered CD4 and viral load -Needs to follow-up as an outpatient with [facility] to establish care for HIV if he cannot get his insurance sorted. -Will start Atripla, which subsitutes the rilpivirine of Hector with efavirenz, another NNRTI Pain control Rule out diabetes monitor blood sugar. Discussed with patient need to have a follow-up for management of his HIV Follow additional recommendation by the consultants. Plan discussed with the patient DVT and GI prophylaxis Hospitalist Physical - Constitutional Vitals: Temp Pulse Resp BP Pulse Ox 97.8 F 83 16 137/79 95 09/13/19 04:18 09/13/19 04:18 09/13/19 04:18 09/13/19 04:18 09/13/19 04:18 Results - Labs CBC & Chem 7: 09/12/19 01:52 09/12/19 01:52 Labs: Laboratory Last Values WBC 9.6 K/mm3 (4.5-11.0) 09/12/19 01:52 RBC 5.87 M/mm3 (3.65-5.03) H 09/12/19 01:52 Hgb 14.3 gm/dl (11.8-15.2) 09/12/19 01:52 Hct 45.2 % (35.5-45.6) 09/12/19 01:52 MCV 77 fl (84-94) L 09/12/19 01:52 MCH 24 pg (28-32) L 09/12/19 01:52 MCHC 32 % (32-34) 09/12/19 01:52 RDW 14.5 % (13.2-15.2) 09/12/19 01:52 Plt Count 276 K/mm3 (140-440) 09/12/19 01:52 Lymph % (Auto) 15.2 % (13.4-35.0) 09/12/19 01:52 [place] % (Auto) 4.9 % (0.0-7.3) 09/12/19 01:52 Eos % (Auto) 1.1 % (0.0-4.3) 09/12/19 01:52 Baso % (Auto) 0.5 % (0.0-1.8) 09/12/19 01:52 Lymph # 1.5 K/mm3 (1.2-5.4) 09/12/19 01:52 [place] # 0.5 K/mm3 (0.0-0.8) 09/12/19 01:52 Eos # 0.1 K/mm3 (0.0-0.4) 09/12/19 01:52 Baso # 0.0 K/mm3 (0.0-0.1) 09/12/19 01:52 Seg Neutrophils % 78.3 % (40.0-70.0) H 09/12/19 01:52 Seg Neutrophils # 7.5 K/mm3 (1.8-7.7) 09/12/19 01:52 Sodium 141 mmol/L (137-145) 09/12/19 01:52 Potassium 4.3 mmol/L (3.6-5.0) 09/12/19 01:52 Chloride 103.6 mmol/L (98-107) 09/12/19 01:52 Carbon Dioxide 24 mmol/L (22-30) 09/12/19 01:52 Anion Gap 18 mmol/L 09/12/19 01:52 BUN 9 mg/dL (9-20) 09/12/19 01:52 Creatinine 1.1 mg/dL (0.8-1.5) 09/12/19 01:52 Estimated GFR > 60 ml/min 09/12/19 01:52 BUN/Creatinine Ratio 8 % 09/12/19 01:52 Glucose 133 mg/dL (75-100) H 09/12/19 01:52 Lactic Acid 1.80 mmol/L (0.7-2.0) 09/12/19 02:35 Calcium 9.0 mg/dL (8.4-10.2) 09/12/19 01:52 Total Bilirubin < 0.20 mg/dL (0.1-1.2) 09/12/19 01:52 AST 14 units/L (5-40) 09/12/19 01:52 ALT 12 units/L (7-56) 09/12/19 01:52 Alkaline Phosphatase 85 units/L (35-129) 09/12/19 01:52 Total Protein 7.0 g/dL (6.3-8.2) 09/12/19 01:52 Albumin 4.0 g/dL (3.9-5) 09/12/19 01:52 Albumin/Globulin Ratio 1.3 % 09/12/19 01:52 Urine Color Straw (Yellow) 09/12/19 10:50 Urine Turbidity Clear (Clear) 09/12/19 10:50 Urine pH 6.0 (5.0-7.0) 09/12/19 10:50 Ur Specific [place] 1.024 (1.003-1.030) 09/12/19 10:50 Urine Protein <15 mg/dl mg/dL (Negative) 09/12/19 10:50 Urine Glucose (UA) Neg mg/dL (Negative) 09/12/19 10:50 Urine Ketones Neg mg/dL (Negative) 09/12/19 10:50 Urine Blood Neg (Negative) 09/12/19 10:50 Urine Nitrite Neg (Negative) 09/12/19 10:50 Urine Bilirubin Neg (Negative) 09/12/19 10:50 Urine Urobilinogen < 2.0 mg/dL (<2.0) 09/12/19 10:50 Ur Leukocyte Esterase Tr (Negative) 09/12/19 10:50 Urine WBC (Auto) 4.0 /HPF (0.0-6.0) 09/12/19 10:50 Urine RBC (Auto) 1.0 /HPF (0.0-6.0) 09/12/19 10:50 U Epithel Cells (Auto) < 1.0 /HPF (0-13.0) 09/12/19 10:50 Blood Type O POSITIVE 09/12/19 08:30 Antibody Screen Negative 09/12/19 08:30 Wilkes/IV: Voiding Method Toilet IV Catheter Type [Right Hand] Peripheral IV Active Medications - Current Medications Current Medications: Generic Name Dose Route Start Last Admin Trade Name Freq PRN Reason Stop Dose Admin Acetaminophen 650 mg 09/12/19 08:01 Tylenol PO Q4H PRN Pain MILD(1-3)/Fever >100.5/CUELLO Albuterol 2.5 mg 09/12/19 08:01 Proventil IH Q4HRT PRN Shortness Of Breath Efavirenz 600 mg 09/13/19 06:00 09/13/19 05:32 Sustiva PO Not Given DAILY@0600 [facility] Emtricitabine 200 mg 09/13/19 06:00 09/13/19 05:32 Emtriva PO Not Given QDAY@0600 [facility] Heparin Sodium (Porcine) 5,000 unit 09/12/19 10:00 09/12/19 22:06 Heparin SUB-Q Not Given Q12HR [facility] Sodium Chloride 1,000 mls @ 125 mls/hr 09/12/19 09:00 09/12/19 13:11 Nacl 0.9% 1000 Ml IV 125 mls/hr DIRECT [facility] Administration Cefepime HCl 2 gm in 100 mls @ 200 mls/hr 09/12/19 09:00 09/13/19 05:30 Cefepime/Ns 2 Gm/100 Ml IV 200 mls/hr Q8HR [facility] Administration Protocol Metronidazole 500 mg in 100 mls @ 100 mls/hr 09/12/19 09:30 09/13/19 05:30 Flagyl 500 Mg/100 Ml IV 100 mls/hr Q8HR [facility] Administration Protocol Vancomycin HCl 1,500 mg/ 530 mls @ 333.333 mls/hr 09/12/19 16:00 09/13/19 03:59 Sodium Chloride IV 333.333 mls/hr Q12H [facility] Administration Morphine Sulfate 2 mg 09/12/19 08:01 09/12/19 12:16 Morphine IV 2 mg Q4H PRN Administration Pain , Severe (7-10) Ondansetron HCl 4 mg 09/12/19 09:00 Zofran IV Q8H PRN Nausea And Vomiting Oxycodone/Acetaminophen 1 tab 09/12/19 08:01 Percocet 5/325 PO Q6H PRN Pain, Moderate (4-6) Senna 8.6 mg 09/12/19 10:00 09/12/19 22:05 Senokot PO 8.6 mg Q12HR [facility] Administration Sodium Chloride 10 ml 09/12/19 10:00 09/12/19 22:05 Sodium Chloride Flush Syringe 10 Ml IV 10 ml BID [facility] Administration Sodium Chloride 10 ml 09/12/19 08:01 Sodium Chloride Flush Syringe 10 Ml IV 09/22/19 08:00 PRN PRN LINE FLUSH Tenofovir Disoproxil Fumarate 300 mg 09/13/19 06:00 09/13/19 05:32 Viread PO Not Given QDAY@0600 [facility]
--- NOTE | 2019-09-13 09:12 | Discharge Summary ---
Providers - Providers Date of Admission: 09/12/19 06:43 Attending physician: MICHAEL GUZMAN MD 09/12/19 05:32 Consult to Physician [CONS] Stat Comment: Consulting Provider: LUCIAN FLETCHER Physician Instructions: Consult later for evaluation Reason For Exam: perineal abscess; scrotal cellulitis 09/12/19 08:00 Consult to Physician [CONS] Routine Comment: Consulting Provider: NANCY MCDONALD Physician Instructions: Reason For Exam: SCROTAL ABSCESS 09/12/19 13:21 Consult to Case Management [CONS] Routine Services Needed at Discharge: Home Health Services Other Notified:: n/a Additional Physician Instructions: needs follow up in wound care clinic. jamel care application Primary care physician: TELEPHONE ANSWERER Hospitalization Reason for admission: Scrotal abscess Condition: Stable Hospital course: Patient is a 44-year-old male with history consistent of HIV and prior history of scrotal abscess who presents to the ED with complaint of perirenal pain 7/10 in intensity ongoing for about a week with swelling and discharge is noted in the area. The patient reports that in prior years he had incision and drainage in the same area and required home health about 2 weeks. He otherwise has not had the need to go to the hospital until this happened bring him to the ED. In the ED he was noted to have a severely painful swollen erythematous maculopapular rash with thick purulent discharge in scrotum area he reports diffuse body aches and chills with low-grade fever for the past 5 days. But denies any nausea vomiting or diarrhea. Pelvic CT: IMPRESSION: 1. Perineal edema without CT evidence of an organized fluid collection/abscess along the pelvis. 2. Indeterminate structure of soft tissue density arising from the scrotum as above could represent a wound. Please correlate with the clinical findings. Patient during the course of the admission underwent incision and drainage recommendation from surgery the patient can be discharged on p.o. Bactrim and follow-up with them in 5 days on Sunday. Patient was also seen by ID recommended to follow-up with [facility] to establish care for HIV if he cannot get insurance sorted out also, he was started on Atripla. At his current clinic where he is enrolled in a research trial. Patient underwent surgical I&D and as noted below OK to nm home from surgery standpoint. Wound care instructions left on patient's chart and verbally explained to him. D/w ID, Dr. Huddleston. Pt to be discharged on Bactrim. Pt instructed to follow up in surgery clinic on Saturday 09/16 and will follow up on wound cultures as outpt. Pre-op diagnosis: perineum/scrotal abscess Post-op diagnosis: same Findings: chronic abscess cavity at base of scrotum with fibrinous tissue lining the cavity. No gross pus or blood. Procedure: incision and drainage of perineal abscess with excisional debridement of abscess cavity Scrotal abscess SIRS Without organ dysfunction HIV Disposition: DC- TO HOME OR SELFCARE Time spent for discharge: 35 mins Core Measure Documentation - Palliative Care Palliative Care/ Comfort Measures: Not Applicable - Core Measures Any of the following diagnoses?: none Exam - Physical Exam Narrative exam: VITAL SIGNS: Reviewed. GENERAL: The patient appears normally developed, Vital signs as documented. HEAD: No signs of head trauma. EYES: Pupils are equal. Extraocular motions intact. EARS: Hearing grossly intact. MOUTH: Oropharynx is normal. NECK: No adenopathy, no JVD. CHEST: Chest with clear breath sounds bilaterally. No wheezes, rales, or rhonchi. CARDIAC: Regular rate and rhythm. S1 and S2, without murmurs, gallops, or rubs. VASCULAR: No Edema. Peripheral pulses normal and equal in all extremities. ABDOMEN/: Scrotal erythema with maculopapular rash, some drainage expressed. Tender to touch soft, non tender and non distended. No rebound or guarding, and no masses palpated. Bowel Sounds normal. MUSCULOSKELETAL: Good range of motion of all major joints. Extremities without clubbing, cyanosis or edema. NEUROLOGIC EXAM: Alert and oriented x 3 No focal sensory or strength defic its. Speech normal. Follows commands. PSYCHIATRIC: Mood normal. SKIN: detial exam as documented in skin assessment - Constitutional Vitals: Temp Pulse Resp BP Pulse Ox 97.8 F 83 16 137/79 95 09/13/19 04:18 09/13/19 04:18 09/13/19 04:18 09/13/19 04:18 09/13/19 04:18 Plan Activity: advance as tolerated, fall precautions Diet: low fat Wound: per your surgeon's advice, per wound nurse instructions Special Instructions: record daily weights, record daily BP diary Follow up with: LUCIAN FLETCHER DO [Staff Physician] - 3 Days PRIMARY CARE, [Primary Care Provider] - 3-5 Days Prescriptions: Sulfamethoxazole/Trimethoprim [Bactrim DS TAB] 1 each PO BID #14 tablet traMADoL [Ultram] 50 mg PO Q6HR PRN #10 tablet PRN Reason: Pain
[2019-09-13] MEDS ORDERED: fentaNYL 100 MCG/2 ML INJ ONE (09:23)
[2019-09-13] MEDS ORDERED: propofoL 200 MG/20 ML VIAL IV ONE (09:23)
[2019-09-13] MEDS ORDERED: MIDAZOLAM 2 MG/2 ML INJ ONE (09:23)
[2019-09-13] MEDS ORDERED: LACTATED RINGERS 1,000 ML ONE (09:24)
[2019-09-13] MEDS ORDERED: BUPIVACAINE/PF (0.5%) 5 MG/1 ML 30 ML VIAL INFILTRATI ONE ×2 (09:31→09:53)
[2019-09-13] MEDS ORDERED: LIDOCAINE (1%) 10 MG/1 ML VIAL 20 ML MDV ONE (09:31)
[2019-09-13] MEDS ORDERED: HYDROmorphone 1 MG/1 ML INJ ONE (09:51)
[2019-09-13] MEDS ORDERED: LIDOCAINE (1%) 10 MG/1 ML VIAL 20 ML MDV INFILTRATI ONE (09:53)
[2019-09-13] MEDS ORDERED: SODIUM CHLORIDE 0.9% IRR 1,500 ML BOTTLE IR ONE (09:55)
[2019-09-13] MEDS ORDERED: ONDANSETRON 4 MG/2 ML INJ ONE (10:00)
[2019-09-13] MEDS ORDERED: ceFAZolin 1 GM VIAL ONE (10:00)
[2019-09-13] MEDS: HEPARIN 5,000 UNIT/1 ML VIAL SUB-Q SCH (10:00)
--- NOTE | 2019-09-13 10:04 | Anesthesia Day of Surgery ---
Anesthesia Day of Surgery - Day of Surgery Patient Examined: Yes Patient H&P Reviewed: Yes Patient is NPO: Yes
--- NOTE | 2019-09-13 10:14 | Post Operative Note ---
Pre-op diagnosis: perineum/scrotal abscess Post-op diagnosis: same Findings: chronic abscess cavity at base of scrotum with fibrinous tissue lining the cavity. No gross pus or blood. Procedure: incision and drainage of perineal abscess with excisional debridement of abscess cavity Anesthesia: GETA, local Surgeon: LUCIAN FLETCHER Estimated blood loss: minimal Pathology: list (cultures) Specimen disposition: to lab Condition: stable Disposition: PACU
[2019-09-13] MEDS ORDERED: hydrALAZINE 20 MG/1 ML INJ IV PRN (10:57)
[2019-09-13] MEDS: SODIUM CHLORIDE 0.9% 1000 ML 1,000 ML IV SCH (11:29)
[2019-09-13 11:37] VITALS: BP 126/85
--- NOTE | 2019-09-13 11:43 | Post Anesthesia Evaluation ---
- Post Anesthesia Evaluation Patient Participated: Yes Airway Patent: Yes Stable Respiratory Function: Yes Nausea/Vomiting: No Temp > 96.8F: Yes Pain Manageable: Yes Adequeate Hydration: Yes Anesthesia Complications: No
[2019-09-13] MEDS: SENNOSIDES 8.6 MG TAB PO SCH (18:33)
== END 2019-09-13 19:00 | disposition home or self-care (01) | DRG 717 ==
LOC: ED 23:35 → 3A 09-12 06:43
PROVIDERS: ADMIT Internal Medicine Geriatric Medicine; ATTEND Internal Medicine
PROC: 0V950ZZ Drainage of Scrotum, Open Approach (ICD-10-PCS; principal; 2019-09-13)
PROC: 0JBB0ZZ Excision of Perineum Subcutaneous Tissue and Fascia, Open Approach (ICD-10-PCS; 2019-09-13)
DX: N49.2 Inflammatory disorders of scrotum (principal); R65.10 Systemic inflammatory response syndrome (SIRS) of non-infectious origin without acute organ dysfunction; B20 Human immunodeficiency virus [HIV] disease; L03.315 Cellulitis of perineum; L02.215 Cutaneous abscess of perineum; G47.30 Sleep apnea, unspecified; Z72.89 Other problems related to lifestyle
CPT/HCPCS: 36415; 72193; 80053; 81001; 82140; 85025; 86850; 86900; 86901; 87075; 87076; 87086; 87116; 87186; G0378; J0360; J0690; J0692; J1170; J1644; J1885; J2175; J2250; J2270; J2405; J2704; J3010; J3370; J7030; J7040; J7120; Q9967